=== PATIENT | male | born 1950 | race African-American/Black ===

== ENCOUNTER 2016-10-25 17:58 | Inpatient (IN) | payer MEDICARE ==
[~2016-10-25] VITALS: Ht 175.3 cm; Wt 69.9 kg
[2016-10-25] MEDS ORDERED: RISP0.2515 PO (18:19)
[2016-10-25] MEDS ORDERED: ACET-2154 PO (18:19)
[2016-10-25] MEDS ORDERED: FAMO-132 PO (18:19)
--- NOTE | 2016-10-25 18:20 | NUR ---
SECURITY AT THE BEDSIDE.
--- NOTE | 2016-10-25 18:49 | NUR ---
[facility] ORDERED/SENT, PT HAS BEEN MEDICALLY CLEARED BY DR DODD. CALLED MHU SPOKE WITH ALEKSEY DAVIS, WHOM STATED TOO BUSY FOR REPORT, AND TO HAVE PT TRANSFERRED AFTER CHANGE OF SHIFT.
--- NOTE | 2016-10-25 18:53 | NUR ---
BELONGINGS LIST, ADMIT ORDER, MRSA NARES COMPLETED.
--- NOTE | 2016-10-25 19:05 | NUR ---
SBAR REPORT TO PM SHIFT.
--- NOTE | 2016-10-25 19:10 | NUR ---
Received report from SUSAN Murray. Assumed care of pt at this time. Pt restless in room, speaking with self. Security at bedside. Admission pending.
--- NOTE | 2016-10-25 19:38 | NUR ---
Attempted to call report. Floor unable at this time. Requested to be call back in approx 15 mins
--- NOTE | 2016-10-25 19:57 | NUR ---
Pt became aggitated, attempting to leave room. Threatening staff, threatening "to fight". Tyson xiao called. Pt placed in 4 point hard restraints. Pt medicated for aggitation. Will monitor for effects of medication. Report called to SUSAN Valdez in MHU. Preparing to transfer pt to the floor
[2016-10-25] MEDS ORDERED: OLANZAPINE 10 MG VIAL IM ONE ×2 (20:00→20:04)
--- NOTE | 2016-10-25 20:05 | NUR ---
All restraints removed prior to transfer to the floor. Pt appears more calm and cooperative.
[2016-10-25] MEDS ORDERED: ACETAMINOPHEN 325 MG TABLET PO PRN (20:45)
[2016-10-25] MEDS ORDERED: MAGNESIUM HYDROXIDE 30 ML LIQUID UDC PO PRN (20:45)
[2016-10-25] MEDS ORDERED: MAG HYDROX/AL HYDROX/SIMETH 30 ML LIQUID UDC PO PRN (20:45)
--- NOTE | 2016-10-25 23:36 | NUR ---
PATIENT RECEIVED FROM ER, PATIENT RECEIVED ZYPREXA 10MG IM DUE TO INCREASED AGITATION AND TRYING TO WALK OUT OF ER. PATIENT RECEIVED AT 2015 [facility] [place] PATIENT [facility]ORY, REFUSING TO ANSWER QUESTIONS WALKED TOWARDS DOORS STANDING IN FRONT OF DOORS LOOKING OUT OF WINDOW. PATIENT ALERT/ORIENTED X2 WITH CONFUSION NOTED, PATIENT PARANOID, SUSPICIOUS, TALKING TO SELF. PATIENT IS UNPREDICTABLE. PATIENT OFFERED A SANDWICH, WATER, AND JUICE PATIENT AGREED. PATIENT ORIENTED TO ROOM AND GIVEN HOSPITAL GOWN, PANTS, AND SOCKS. CONTRABAND TAKEN AND PLACED IN LOCKER BELT, AND SHOES WITH SHOE LACES, PATIENT HAD 3 NECKLACES HE OFFERED TO PUT ONLY 1 IN LOCKER, GETTING AGITATED. PATIENT IS EASILY AGITATED, EASILY IRRITABLE. PATIENT SUPERVISOR PIPE JOINTS WHEN ASKING QUESTION ON HEALTH PATIENT REFUSES STATING "NO MAAM." PATIENT ORIENTED TO ROOM AND BATHROOM. PATIENT DID STATED HE DRINKS ALCOHOL WON'T GO INTO ANY FURTHER ABOUT DRINKING. PATIENT DENIES PAIN AT THIS TIME, WILL CONTINUE TO MONITOR. BED IN LOWEST POSITION, BED LOCKED, AND BED ALARM ON WHILE IN BED.
[2016-10-26 00:07] VITALS: BP 150/86
[2016-10-26] MEDS: FAMOTIDINE 20 MG TABLET PO SCH (09:54)
[2016-10-26 16:41] VITALS: BP 129/85
[2016-10-26 20:00] VITALS: BP 125/86
[2016-10-26] MEDS: RIVASTIGMINE TARTRATE 1.5 MG CAPSULE PO SCH (21:18)
[2016-10-26] MEDS: risperiDONE 0.5 MG TABLET PO SCH (21:18)
[2016-10-27 07:28] LABS: BASOPHILS % (AUTO) 0.5 % (0.0-2.0); EOSINOPHILS # (AUTO) 0.2 K/uL (0.0-0.7); EOSINOPHILS % (AUTO) 4.2 % (0.0-7.0); HEMATOCRIT 38.9 % (40-50); LYMPHOCYTES # (AUTO) 1.2 K/UL (0.8-4.8); LYMPHOCYTES % (AUTO) 29.4 % (20.5-51.5); MEAN CORPUSCULAR HEMOGLOBIN 30.4 UUG (27.0-31.0); MEAN CORPUSCULAR HGB CONC 33 g/dL (32.0-37.0); MEAN CORPUSCULAR VOLUME 91.1 FL (82.0-92.0); MONOCYTES # (AUTO) 0.4 K/UL (0.1-1.30); MONOCYTES % (AUTO) 9.5 % (0.0-11.0); NEUTROPHILS # (AUTO) 2.3 K/UL (1.8-8.9); NEUTROPHILS % (AUTO) 56.4 % (38.5-71.5); PLATELET COUNT (AUTO) 163 K/UL (150-450); RED BLOOD CELL COUNT(AUTO) 4.27 MIL/UL (4.7-6.1); WHITE BLOOD COUNT (AUTO) 4.1 K/UL (4.0-11.2)
[2016-10-27 07:30] VITALS: BP 120/86
[2016-10-27 07:51] LABS: BILIRUBIN,TOTAL 1.3 mg/dL (0.2-1.0); CREATININE 0.9 mg/dL (0.6-1.3); MAGNESIUM 1.9 mg/dL (1.8-2.4); PHOSPHOROUS 3.2 mg/dL (2.5-4.9); POTASSIUM 3.8 mmol/L (3.5-5.1); TOTAL PROTEIN, SERUM 5.9 g/dL (6.4-8.2)
[2016-10-27 08:07] LABS: THYROID STIMULATING HORMONE 2.218 mIU/mL (0.358-3.740)
[2016-10-27] MEDS: FAMOTIDINE 20 MG TABLET PO SCH (08:34)
[2016-10-27] MEDS: risperiDONE 0.5 MG TABLET PO SCH ×2 (08:34→20:11)
[2016-10-27] MEDS: RIVASTIGMINE TARTRATE 1.5 MG CAPSULE PO SCH ×2 (08:34→20:11)
--- NOTE | 2016-10-27 12:05 | NUR ---
Initial discharge instructions: Patient resides at the [facility] [[address] [place], [place] [address];[phone]].Per pt's brother,he would like the pt to return there once stable.Spoke with Lefty Juno in admissions who stated the pt may return back once stable.SW will speak with pt,family,and MD regarding appropriate discharge plans.SW will form a safe and proper discharge.
[2016-10-27 15:08] VITALS: BP 131/83
[2016-10-27 20:22] VITALS: BP 155/98
[2016-10-27] MEDS: LORAZEPAM 1 MG TABLET PO PRN (22:09)
[2016-10-27] MEDS: TEMAZEPAM 7.5 MG CAPSULE PO PRN (23:08)
--- NOTE | 2016-10-28 00:32 | NUR ---
nsg: pt still awake. ativan and restoril given. not effective. pt standing by his door, pacing but not angry. redirection and reorientation promoted.
[2016-10-28 07:30] VITALS: BP 128/86
[2016-10-28 07:49] LABS: BILIRUBIN,DIRECT 0.2 mg/dL (0.0-0.2); BILIRUBIN,TOTAL 0.8 mg/dL (0.2-1.0); TOTAL PROTEIN, SERUM 7.5 g/dL (6.4-8.2)
[2016-10-28] MEDS: risperiDONE 0.5 MG TABLET PO SCH ×2 (08:43→20:20)
[2016-10-28] MEDS: FAMOTIDINE 20 MG TABLET PO SCH (08:43)
[2016-10-28] MEDS: RIVASTIGMINE TARTRATE 1.5 MG CAPSULE PO SCH ×2 (08:43→20:20)
[2016-10-28] MEDS: CHOLECALCIFEROL 1,000 UNIT TABLET PO SCH (11:11)
[2016-10-28 15:00] VITALS: BP 127/91
[2016-10-28] MEDS: LORAZEPAM 1 MG TABLET PO PRN (21:25)
[2016-10-28] MEDS: TEMAZEPAM 7.5 MG CAPSULE PO PRN (22:02)
[2016-10-29 07:30] VITALS: BP 138/94
[2016-10-29] MEDS: CHOLECALCIFEROL 1,000 UNIT TABLET PO SCH (09:10)
[2016-10-29] MEDS: risperiDONE 0.5 MG TABLET PO SCH (09:10)
[2016-10-29] MEDS: FAMOTIDINE 20 MG TABLET PO SCH (09:10)
[2016-10-29] MEDS: RIVASTIGMINE TARTRATE 1.5 MG CAPSULE PO SCH ×2 (09:10→20:18)
--- NOTE | 2016-10-29 18:32 | NUR ---
patient has been visible on unit standing in front of his door way watching and at the front door, constantly walking redirection frequently, no out bursts very intrusive with visitors no logic
[2016-10-29] MEDS: LORAZEPAM 1 MG TABLET PO PRN (19:38)
[2016-10-29] MEDS: risperiDONE 0.25 MG TABLET PO SCH (20:34)
[2016-10-29] MEDS ORDERED: risperiDONE 1 MG TABLET PO SCH (21:00)
[2016-10-29 21:01] VITALS: BP 130/90
[2016-10-29] MEDS: TEMAZEPAM 7.5 MG CAPSULE PO PRN (22:25)
[2016-10-30 07:30] VITALS: BP 124/79
[2016-10-30] MEDS: CHOLECALCIFEROL 1,000 UNIT TABLET PO SCH (09:50)
[2016-10-30] MEDS: FAMOTIDINE 20 MG TABLET PO SCH (09:50)
[2016-10-30] MEDS: risperiDONE 0.25 MG TABLET PO SCH ×2 (09:50→20:07)
[2016-10-30] MEDS: RIVASTIGMINE TARTRATE 1.5 MG CAPSULE PO SCH ×2 (09:50→20:07)
[2016-10-30 16:44] VITALS: BP 143/93
[2016-10-30 21:04] VITALS: BP 138/88
[2016-10-31] MEDS: TEMAZEPAM 7.5 MG CAPSULE PO PRN (01:05)
[2016-10-31 07:30] VITALS: BP 122/87
[2016-10-31] MEDS: risperiDONE 0.25 MG TABLET PO SCH ×2 (08:00→20:27)
[2016-10-31] MEDS: CHOLECALCIFEROL 1,000 UNIT TABLET PO SCH (08:00)
[2016-10-31] MEDS: RIVASTIGMINE TARTRATE 1.5 MG CAPSULE PO SCH ×2 (08:00→20:27)
[2016-10-31] MEDS: FAMOTIDINE 20 MG TABLET PO SCH (08:00)
[2016-10-31 16:00] VITALS: BP 153/92
[2016-10-31 20:00] VITALS: BP 143/89
[2016-11-01 07:58] VITALS: BP 119/82
[2016-11-01] MEDS: risperiDONE 1 MG TABLET PO SCH ×2 (08:16→20:46)
[2016-11-01] MEDS: FAMOTIDINE 20 MG TABLET PO SCH (08:16)
[2016-11-01] MEDS: CHOLECALCIFEROL 1,000 UNIT TABLET PO SCH (08:16)
[2016-11-01] MEDS: RIVASTIGMINE TARTRATE 1.5 MG CAPSULE PO SCH (08:16)
[2016-11-01 11:27] LABS: BASOPHILS % (AUTO) 1.1 % (0.0-2.0); EOSINOPHILS # (AUTO) 0.1 K/uL (0.0-0.7); EOSINOPHILS % (AUTO) 2.9 % (0.0-7.0); HEMOGLOBIN 13.6 G/DL (14.0-18.0); LYMPHOCYTES # (AUTO) 1.1 K/UL (0.8-4.8); LYMPHOCYTES % (AUTO) 27.2 % (20.5-51.5); MEAN CORPUSCULAR HEMOGLOBIN 29.8 UUG (27.0-31.0); MEAN CORPUSCULAR HGB CONC 33 g/dL (32.0-37.0); MEAN CORPUSCULAR VOLUME 91.8 FL (82.0-92.0); MONOCYTES # (AUTO) 0.4 K/UL (0.1-1.30); MONOCYTES % (AUTO) 9.1 % (0.0-11.0); NEUTROPHILS # (AUTO) 2.6 K/UL (1.8-8.9); NEUTROPHILS % (AUTO) 59.7 % (38.5-71.5); RED BLOOD CELL COUNT(AUTO) 4.57 MIL/UL (4.7-6.1); WHITE BLOOD COUNT (AUTO) 4.2 K/UL (4.0-11.2)
[2016-11-01 11:36] LABS: PLATELET COUNT (AUTO) 227 K/UL (150-450)
[2016-11-01 11:40] LABS: BILIRUBIN,TOTAL 0.6 mg/dL (0.2-1.0); MAGNESIUM 2.1 mg/dL (1.8-2.4); PHOSPHOROUS 3.4 mg/dL (2.5-4.9); TOTAL PROTEIN, SERUM 6.9 g/dL (6.4-8.2)
[2016-11-01 16:59] VITALS: BP 109/76
[2016-11-01 21:30] VITALS: BP 124/89
--- NOTE | 2016-11-02 06:54 | NUR ---
Patient slept through the night for about 8 hrs. No delusion or hallucination noted during the shift. patient compliant with medication regiment at this time. we will continue to monitor.
[2016-11-02 07:30] VITALS: BP 125/75
[2016-11-02] MEDS: RIVASTIGMINE TARTRATE 3 MG CAPSULE PO SCH ×2 (08:35→17:05)
[2016-11-02] MEDS: risperiDONE 1 MG TABLET PO SCH (08:35)
[2016-11-02] MEDS: FAMOTIDINE 20 MG TABLET PO SCH (08:35)
[2016-11-02] MEDS: CHOLECALCIFEROL 1,000 UNIT TABLET PO SCH (08:35)
[2016-11-02 15:39] VITALS: BP 132/83
[2016-11-02] MEDS: LORAZEPAM 1 MG TABLET PO PRN (17:39)
--- NOTE | 2016-11-02 18:34 | NUR ---
1630 Observed patient pacing and stays on and off in front of the main door , redirected to go back in his room or stays in the dining room for activity or watch TV program.1700 Offered to patient his [employer] cap as ordered, patient needs become agitated need prompting in taking his medications. Patient continue to be agitated pacing towards the front door.1739 Offered prn ativan 1mg po for agitation, patient got upset and thow the pill to the floor. 1800 Dr. Garcia was in the MHU and notified regarding patient aggressive behavior.
[2016-11-02 20:00] VITALS: BP 134/83
[2016-11-02] MEDS: risperiDONE 1 MG/ML UDC PO SCH (20:13)
[2016-11-03 07:30] VITALS: BP 120/79
[2016-11-03] MEDS: FAMOTIDINE 20 MG TABLET PO SCH (08:30)
[2016-11-03] MEDS: RIVASTIGMINE TARTRATE 3 MG CAPSULE PO SCH ×2 (08:30→18:04)
[2016-11-03] MEDS: CHOLECALCIFEROL 1,000 UNIT TABLET PO SCH (08:30)
--- NOTE | 2016-11-03 09:49 | NUR ---
patient took his morning medications, except the risperdal liquid 1.5 mg po, explained to the him the indication of the drug but patient strongly refused stated "no I'm not taking that medication ." Will try to offer it again .
[2016-11-03] MEDS: risperiDONE 1 MG/ML UDC PO SCH (12:47)
[2016-11-03 16:00] VITALS: BP 122/87
[2016-11-03 19:59] VITALS: BP 133/92
[2016-11-03] MEDS: risperiDONE 1 MG TABLET PO SCH (20:00)
--- NOTE | 2016-11-03 21:36 | NUR ---
PATIENT RECEIVED IN ACTIVITIES ROOM WATCHING T.V. PATIENT CONFUSED/FORGETFUL WITH CONSTANT REDIRECTION AND PROMPTING. PATIENT CONSTANT PACING TRYING TO OPEN DOOR AND WALKING INTO OTHER PATIENT'S ROOM, IS REDIRECTABLE. PATIENT HAS POOR INSIGHT REGARDING HEALTH, AND POOR JUDGEMENT, IS REDIRECTABLE. PATIENT COMPLAINT WITH MEDICATION. NO AGGRESSIVE OR COMBATIVE BEHAVIOR NOTED WILL CONTINUE TO MONITOR AND REDIRECT. PATIENT DENIES PAIN AT THIS TIME, WILL CONTINUE TO MONITOR.
[2016-11-04 07:30] VITALS: BP 130/78
[2016-11-04 08:03] LABS: BASOPHILS % (AUTO) 0.8 % (0.0-2.0); EOSINOPHILS # (AUTO) 0.1 K/uL (0.0-0.7); EOSINOPHILS % (AUTO) 2.7 % (0.0-7.0); HEMATOCRIT 41.3 % (40-50); HEMOGLOBIN 13.8 G/DL (14.0-18.0); LYMPHOCYTES # (AUTO) 1.6 K/UL (0.8-4.8); LYMPHOCYTES % (AUTO) 35.8 % (20.5-51.5); MEAN CORPUSCULAR HEMOGLOBIN 31.2 UUG (27.0-31.0); MEAN CORPUSCULAR HGB CONC 33 g/dL (32.0-37.0); MEAN CORPUSCULAR VOLUME 93.3 FL (82.0-92.0); MONOCYTES # (AUTO) 0.5 K/UL (0.1-1.30); MONOCYTES % (AUTO) 10.5 % (0.0-11.0); NEUTROPHILS # (AUTO) 2.3 K/UL (1.8-8.9); NEUTROPHILS % (AUTO) 50.2 % (38.5-71.5); PLATELET COUNT (AUTO) 261 K/UL (150-450); RED BLOOD CELL COUNT(AUTO) 4.43 MIL/UL (4.7-6.1); WHITE BLOOD COUNT (AUTO) 4.5 K/UL (4.0-11.2)
[2016-11-04 08:46] LABS: PHOSPHOROUS 3.1 mg/dL (2.5-4.9); POTASSIUM 3.6 mmol/L (3.5-5.1)
[2016-11-04] MEDS: CHOLECALCIFEROL 1,000 UNIT TABLET PO SCH (08:47)
[2016-11-04] MEDS: RIVASTIGMINE TARTRATE 3 MG CAPSULE PO SCH (08:47)
[2016-11-04] MEDS: FAMOTIDINE 20 MG TABLET PO SCH (08:47)
[2016-11-04] MEDS: risperiDONE 1 MG TABLET PO SCH (08:47)
--- NOTE | 2016-11-04 10:39 | NUR ---
DC Note: Patient will be discharged today to [facility] [[address], [place], [place],[address]; [phone]] via private transportation at 12:00 pm. Patients sonAngelito [phone] will be picking up the patient and transporting him back home. Patients brother, Akbar [phone] is aware and agreeable with discharge plans. Spoke with Analytical Chemistry Teacher, Lefty Fraire who stated they will accept the patient back today. Patient is aware and agreeable with discharge plans as well. Patient will follow-up at the [facility] [[address] [facility], [place] [address]; ] to be assigned a Psychiatrist. Per Akbar, the patient must be present himself this week for an intake screening and will be assigned a Psychiatrist. Patient will follow-up with (Brush Operator) [[address] [facility], [place], [address]; ].
--- NOTE | 2016-11-04 14:30 | NUR ---
GPS.RN- DISCHARGE NOTE Patient oriented to person, partially place (knows its a hospital), disoriented to time and situation, forgetful, compliant with meds, disorganized, redirectable. Patient will be discharged today to [facility] [[address], [place], [place],[address]; [phone]] via private transportation at 12:00 pm. Patients sonAngelito [phone] will be picking up the patient and transporting him back home. Patients brotherAkbar [phone] is aware and agreeable with discharge plans.Patient is aware and agreeable with discharge plans as well. Patient will follow-up at the [facility] [[address] [facility], [place] [address]; ] to be assigned a Psychiatrist. Per Akbar, the patient must be present himself this week for an intake screening and will be assigned a Psychiatrist. Patient will follow-up with ([employer] Lathe Operator) [[address] [facility], [place], [address]; ] belongings returned and accounted for. stable on discharge, discharge instructions reinforced to Angelito (Son).
== END 2016-11-04 14:30 | disposition home or self-care (01) | DRG 885 ==
LOC: ER 17:59 → GPS 20:01
PROVIDERS: ADMIT Psychiatry & Neurology Psychiatry; ATTEND Psychiatry & Neurology Psychiatry
DX: F29 Unspecified psychosis not due to a substance or known physiological condition (principal); F03.91 Unspecified dementia, unspecified severity, with behavioral disturbance; E44.0 Moderate protein-calorie malnutrition; R17 Unspecified jaundice; F20.9 Schizophrenia, unspecified; Z91.83 Wandering in diseases classified elsewhere; Z98.890 Other specified postprocedural states; R74.0 Nonspecific elevation of levels of transaminase and lactic acid dehydrogenase [LDH]; D64.9 Anemia, unspecified; E55.9 Vitamin D deficiency, unspecified; F22 Delusional disorders
CPT/HCPCS: 36415; 82306; 83735; 84100; 84443; 85025; 97161; A4663; J2358